=== PATIENT | male | born 1945 | race Caucasian/White ===

== ENCOUNTER → 2024-11-26 14:54 | Outpatient (REF) | payer OTHER, SELFPAY | LOC: RAD 14:54 | PROVIDERS: ATTENDING PHYSICIAN Family Medicine | DX: M47.22 Other spondylosis with radiculopathy, cervical region (principal) | CPT/HCPCS: 72050 ==

== ENCOUNTER 2025-01-06 10:21 | Outpatient (RCR) | payer OTHER, SELFPAY | END 2025-01-06 23:59 | disposition home or self-care (01) | LOC: RPT 10:21 | PROVIDERS: ATTENDING PHYSICIAN Family Medicine | DX: M47.22 Other spondylosis with radiculopathy, cervical region (principal); Z73.6 Limitation of activities due to disability; M25.511 Pain in right shoulder | CPT/HCPCS: 97010; 97110; 97140; 97162; 97535 ==

== ENCOUNTER 2025-02-09 07:41 | Outpatient (RCR) | payer OTHER, SELFPAY | END 2025-02-09 23:59 | disposition home or self-care (01) | LOC: RPT 07:41 | PROVIDERS: ATTENDING PHYSICIAN Family Medicine | DX: M47.22 Other spondylosis with radiculopathy, cervical region (principal); Z73.6 Limitation of activities due to disability; M25.511 Pain in right shoulder; M62.81 Muscle weakness (generalized) | CPT/HCPCS: 97010; 97110; 97140 ==